=== PATIENT | male | born 1995 | race Caucasian/White ===

== ENCOUNTER 2023-04-19 13:05 | Emergency (ER) | payer OTHER ==
[~2023-04-19] VITALS: Wt 113.6 kg
[2023-04-19 13:59] VITALS: TEMP 98.8
[2023-04-19 14:04] LABS: COLLECTION METHOD CLEAN CATCH
[2023-04-19 14:20] LABS: BASO % 0.5 % (0.0-2.0); EOS # 0.1 K/mm3 (0.0-0.7); EOS % 1.1 % (0.0-4.0); GRAN # 3.6 K/mm3 (1.4-6.5); GRAN % 66.3 % (42.2-75.2); HEMATOCRIT 48.5 % (42.0-52.0); HEMOGLOBIN 16.4 g/dl (13.5-18.0); LYMPH # 1.5 K/mm3 (1.2-3.4); LYMPH % 27.3 % (20.0-51.0); MEAN CELL VOLUME 86 fl (80.0-100.0); MEAN CORPUSCULAR HEMOGLOBIN 29 pg (27-31); MEAN CORPUSCULAR HGB CONC 34 g/dl (33.0-37.0); MEAN PLATELET VOLUME 9.8 fl (7.4-10.4); MONO # 0.2 K/mm3 (0.1-0.6); MONO % 4.4 % (1.7-9.3); PLATELET COUNT 257 K/mm3 (130-400); RED BLOOD COUNT 5.65 M/mm3 (4.20-5.60); REDCELL DISTRIBUTION WIDTH-CV 12.5 % (11.5-14.5)
[2023-04-19 14:40] LABS: TRICYCLIC ANTIDEPRESS URINE NEGATIVE (NEGATIVE)
[2023-04-19 14:42] LABS: ACETAMINOPHEN < 7.0 ug/mL (10-30); ALANINE AMINOTRANSFERASE 70 U/L (0-55); ALBUMIN 4.5 gm/dL (3.5-5.0); ALKALINE PHOSPHATASE 74 U/L (40-150); ANION GAP 12 mmol/L (7-16); AST,SGOT 30 U/L (5-34); BILIRUBIN,TOTAL 0.7 mg/dL (0.2-1.2); BLOOD UREA NITROGEN 8 mg/dL (9-21); CALCIUM 9.9 mg/dL (8.4-10.2); CARBON DIOXIDE 24 mmol/L (22-29); CHLORIDE 105 mmol/L (98-107); CREATININE, serum 1.11 mg/dL (0.72-1.25); GLUCOSE 140 mg/dL (70-99); POTASSIUM 3.7 mmol/L (3.5-4.5); SODIUM 141 mmol/L (136-145)
[2023-04-19 14:45] LABS: ALCOHOL(ethanol),MEDICAL < 10 mg/dL (0-10); SALICYLATE < 5.0 mg/dL (15.0-30.0)
[2023-04-19 15:03] LABS: URINE APPEARANCE Clear (CLEAR/HAZY); URINE BLOOD Negative (NEGATIVE); URINE COLOR Yellow (YELLOW); URINE GLUCOSE Negative (NEGATIVE); URINE KETONE TRACE (NEGATIVE); URINE NITRATE Negative (NEGATIVE); URINE PROTEIN(semi-quant) Negative (NEGATIVE)
[2023-04-19 15:04] LABS: SQUAMOUS EPITHELIAL None Seen /hpf (0-10); URINE RBC None Seen /hpf (0-2)
[2023-04-19 21:10] VITALS: BP 140/85; PULSE 90
== END 2023-04-19 21:10 ==
LOC: COL.ER 13:05
PROVIDERS: Physician Assistant
DX: F32.A Depression, unspecified (principal); R45.851 Suicidal ideations; F17.200 Nicotine dependence, unspecified, uncomplicated; Z79.899 Other long term (current) drug therapy